=== PATIENT | male | born 1940 | race Caucasian/White ===

== ENCOUNTER 2018-11-08 08:40 | Day surgery (SDC) | payer MEDICARE, BC ==
[~2018-11-08 08:40] MED LIST: Lactated Ringers 1,000 ML IV SCH; Sodium Chloride 0.9% 10 ML SDV IV PRN; Sodium Chloride 0.9% 10 ML Syringe FLUSH PRN; Sodium Chloride 0.9% 2.5 ML Syringe FLUSH PRN; ceFAZolin 2 GM in Premix Bag 1 BAG IV ONE
--- NOTE | 2018-11-08 10:21 | PCM.PREANE ---
Preanesthetic Assessment - Anesthesia/Transfusion/Family Hx Anesthesia History: Prior Anesthesia Without Reaction Other Type of Anesthesia Reaction Comment: Denies any known problem with anesthesia in the past Family History of Anesthesia Reaction: No Transfusion History: No Prior Transfusion(s) Intubation History: Unknown - Review of Systems General: No Symptoms Pulmonary: No Symptoms Cardiovascular: No Symptoms Gastrointestinal: No Symptoms Neurological: No Symptoms Other: Reports: None - Physical Assessment NPO Status Date: 11/08/18 NPO Status Time: 05:30 O2 Sat by Pulse Oximetry: 98 Respiratory Rate: 18 Vital Signs: Last Vital Signs Temp 36.2 C 11/08/18 09:10 Pulse 82 11/08/18 09:10 Resp 18 11/08/18 09:10 BP 147/70 H 11/08/18 09:10 Pulse Ox 98 11/08/18 09:10 Height: 1.88 m Weight: 81.193 kg ASA Class: 3 Mental Status: Alert & Oriented x3 Airway Class: Mallampati = 2 Dentition: Reports: Dentures (upper), Partial (lower) Thyro-Mental Finger Breadths: 2 Mouth Opening Finger Breadths: 3 ROM/Head Extension: Full Lungs: Clear to Auscultation, Normal Respiratory Effort Cardiovascular: Regular Rate, Regular Rhythm - Allergies Allergies/Adverse Reactions: Allergies Allergy/AdvReac Type Severity Reaction Status Date / Time No Known Allergies Allergy Verified 11/07/18 09:50 - Blood Blood Available: No - Anesthesia Plan Pre-Op Medication Ordered: None - Acknowledgements Anesthesia Type Planned: General Anesthesia Pt an Appropriate Candidate for the Planned Anesthesia: Yes Alternatives and Risks of Anesthesia Discussed w Pt/Guardian: Yes Pt/Guardian Understands and Agrees with Anesthesia Plan: Yes PreAnesthesia Questionnaire HEENT History: Reports: Cataract, Hard of Hearing, Other (See Below) Other HEENT History: uses reading glasses, has bilateral hearing aides, has upper denture and lower removal partial denture Cardiovascular History: Reports: Bypass, High Cholesterol, Hypertension, [place] Other Cardiovascular History: [place] 2 years ago- denies heart pain and SOB, h/o intracranial bleed 2 years ago after fall Respiratory History: Reports: None Gastrointestinal History: Reports: GERD Genitourinary History: Reports: BPH, Prostate Disorder Other Genitourinary History: h/o prostate cancer since 1999, ongoing Musculoskeletal History: Reports: Arthritis, Fracture Other Musculoskeletal History: bilateral leg pain, hx of fx wrist Neurological History: Reports: Other (See Below) Other Neuro History: "brain bleed" 2 years ago- healed by itself Psychiatric History: Reports: None Endocrine/Metabolic History: Reports: None Hematologic History: Reports: None Immunologic History: Reports: None Oncologic (Cancer) History: Reports: Prostate Dermatologic History: Reports: None - Past Surgical History Head Surgeries/Procedures: Reports: None HEENT Surgical History: Reports: Cataract Surgery Cardiovascular Surgical History: Reports: AAA Repair, Coronary Artery Bypass Other Cardiovascular Surgeries/Procedures: CABG 2 years ago- 5 vessels, ok since Respiratory Surgical History: Reports: None GI Surgical History: Reports: Appendectomy, Hernia, Inguinal (with rt. orchiectomy) Male Surgical History: Reports: Prostatectomy, Other (See Below) Other Male Surgeries/Procedures: radical prostatectomy followed by radiation th. and fpc hormonal therapy- he was ok until 2012- last PSA was 700. Endocrine Surgical History: Reports: None Neurological Surgical History: Reports: None Musculoskeletal Surgical History: Reports: ORIF, Other (See Below) Other Musculoskeletal Surgeries/Procedures:: ORIF bilateral hips (right hip has hardware), release of dupretrens contracture right hand Oncologic Surgical History: Reports: Other (See Below) Other Oncologic Surgeries/Procedures: radical prostatectomy - SUBSTANCE USE Smoking Status *Q: Former Smoker Tobacco Use Within Last Twelve Months: No Recreational Drug Use History: No - HOME MEDS Home Medications: Home Meds Aspirin [Adult Low Dose Aspirin EC] 81 mg PO DAILY 09/26/13 [History] Calcium Carbonate [Calcium] 1 tab PO BID 09/26/13 [History] Metoprolol Tartrate 25 mg PO BID 09/26/13 [History] Omeprazole 20 mg PO ACBRK 09/26/13 [History] Cyanocobalamin (Vitamin B12) [Vitamin B12] 100 mcg PO DAILY 11/07/18 [History] Enzalutamide [Xtandi] 160 mg PO QAM 11/07/18 [History] Leuprolide [Lupron Depot 4-Month] 30 mg IM ASDIRECTED 11/07/18 [History] atorvaSTATin Calcium [Atorvastatin Calcium] 40 mg PO BEDTIME 11/07/18 [History] - CURRENT (IN HOUSE) MEDS Current Meds: Current Medications Lactated Ringer's (Ringers, Lactated) 1,000 mls @ 100 mls/hr IV ASDIRECTED LAUREN Last Admin: 11/08/18 09:15 Dose: 100 mls/hr Sodium Chloride (Saline Flush) 10 ml FLUSH ASDIRECTED PRN PRN Reason: Keep Vein Open Sodium Chloride (Saline Flush) 2.5 ml FLUSH ASDIRECTED PRN PRN Reason: Keep Vein Open Sodium Chloride (Normal Saline) 10 ml IV ASDIRECTED PRN PRN Reason: IV Use Discontinued Medications Cefazolin Sodium/Dextrose 2 gm (/ Premix) 50 mls @ 100 mls/hr IV ONETIME ONE Stop: 11/08/18 00:30
[2018-11-08] MEDS ORDERED: fentaNYL 100 MCG/2 ML SDV ONE (10:22)
[2018-11-08] MEDS ORDERED: Propofol 200 MG/20 ML SDV ONE (10:22)
[2018-11-08] MEDS ORDERED: Lidocaine 2% 5 ML SDV ONE (10:24)
[2018-11-08] MEDS ORDERED: Dexamethasone 4 MG/ML 5 ML MDV ONE (10:24)
[2018-11-08] MEDS ORDERED: ceFAZolin/Dextrose,Iso-Osmotic 2 GM/50 ML Duplex Bag IV ONE (10:25)
[2018-11-08] MEDS ORDERED: Ondansetron 4 MG/2 ML SDV IVPUSH PRN (10:38)
[2018-11-08] MEDS ORDERED: fentaNYL 100 MCG/2 ML SDV IVPUSH PRN (10:38)
[2018-11-08] MEDS ORDERED: Bupivacaine 0.25% 10 ML SDV ONE (10:46)
[2018-11-08] MEDS ORDERED: Ketamine 500 mg/10 ML MDV ONE (10:59)
[2018-11-08] MEDS ORDERED: LEUPROLIDE 30 MG IM SCH (11:30)
[2018-11-08 13:10] VITALS: BP 123/59
--- NOTE | 2018-11-08 14:33 | OR ---
SURGEON: Cristiana Marti M.D. DATE OF PROCEDURE: 11/08/2018 PREOPERATIVE DIAGNOSIS: Stage IV adenocarcinoma of the prostate. POSTOPERATIVE DIAGNOSIS: Stage IV adenocarcinoma of the prostate. OPERATION: Left simple orchiectomy. DESCRIPTION OF PROCEDURE: The patient was in the supine position. External genital area was prepped and draped in sterile drapes. He was given adequate sedation. A 0.25% Marcaine was infiltrated in the spermatic cord and the scrotal skin. An incision was then made in the scrotal skin, a transverse incision that is, and the testicle was delivered to the outside. The cord structures were transected in 3 bites. The proximal end was suture ligated with 0 chromic. With that done, the cord was put back in and the skin was closed using interrupted 3-0 chromic sutures. Estimated blood loss was minimal under 5 mL. The patient tolerated the procedure well and was moved to recovery room in good condition. CONCETTA / IRAIS /[id number]
[2018-11-08] MEDS ORDERED: Metoprolol Tartrate 25 MG Tab PO SCH (21:00)
[2018-11-08] MEDS ORDERED: Calcium Carbonate 500 MG Tablet PO SCH (21:00)
[2018-11-08] MEDS ORDERED: atorvaSTATin 40 MG Tab PO SCH (21:00)
[2018-11-09] MEDS ORDERED: Omeprazole 20 MG Cap.CR PO SCH (07:30)
[2018-11-09] MEDS ORDERED: CYANOCOBALAMIN 100 MCG PO SCH (09:00)
[2018-11-09] MEDS ORDERED: Aspirin 81 MG Tab.EC PO SCH (09:00)
[2018-11-09] MEDS ORDERED: Enzalutamide [Xtandi] 160 MG PO SCH (09:00)
== END 2018-11-08 13:10 | disposition home or self-care (01) ==
LOC: MW.SDS 08:40
PROVIDERS: ATTEND Urology
DX: C61 Malignant neoplasm of prostate (principal); N50.89 Other specified disorders of the male genital organs; N40.0 Benign prostatic hyperplasia without lower urinary tract symptoms; I10 Essential (primary) hypertension; I25.2 Old myocardial infarction; K21.9 Gastro-esophageal reflux disease without esophagitis; E78.00 Pure hypercholesterolemia, unspecified; Z87.891 Personal history of nicotine dependence; Z79.82 Long term (current) use of aspirin; Z79.818 Long term (current) use of other agents affecting estrogen receptors and estrogen levels; Z79.899 Other long term (current) drug therapy; Z95.1 Presence of aortocoronary bypass graft
CPT/HCPCS: 54520; J0131; J0690; J1100; J2001; J2704; J3010; J3490; J7120; 00920